=== PATIENT | female | born 1940 | race African-American/Black ===

== ENCOUNTER 2024-06-29 16:08 | Inpatient (IN) | payer OTHER ==
[2024-06-29 17:41] LABS: BASO % 0.5 % (0-2.0); HEMATOCRIT 39.3 % (32.4-45.2); HEMOGLOBIN 12.2 GM/dL (10.7-15.3); LYMPH % 7.9 % (8-40); MCH 21.2 pg (25.7-33.7); MCHC 30.9 g/dl (32.0-36.0); MEAN CELL VOLUME 68.5 fl (80-96); MEAN PLT VOLUME 8.5 fl (7.5-11.1); MONO % 9.5 % (3.8-10.2); NEUT % 80.1 % (42.8-82.8); PLATELET COUNT 230 10^3/uL (134-434); RBC 5.75 M/mm3 (3.60-5.2); WHITE BLOOD COUNT 9.3 K/mm3 (4.0-10.0)
[2024-06-29 17:48] LABS: INR 1.43 (0.83-1.09)
[2024-06-29 17:51] LABS: ACTIVATED PTT 29.3 SECONDS (25.2-36.5)
[2024-06-29 17:57] LABS: POTASSIUM 4.5 mmol/L (3.5-5.1)
[2024-06-29 17:59] LABS: CALCIUM 9.8 mg/dL (8.5-10.1)
[2024-06-29 18:00] LABS: ALBUMIN 3.6 g/dl (3.4-5.0); BLOOD UREA NITROGEN 17.2 mg/dL (7-18)
[2024-06-29 18:03] LABS: CREATININE 0.9 mg/dL (0.55-1.3)
[2024-06-29 18:05] LABS: BILIRUBIN,TOTAL 0.6 mg/dL (0.2-1); TOT PROT 7.3 g/dl (6.4-8.2)
[2024-06-29 18:18] LABS: ANISOCYTOSIS 2+; MACROCYTOSIS 0; OVALOCYTE 1+; TARGET CELLS 1+; TEAR DROP CELLS 1+
[2024-06-29] MEDS: SODIUM CHLORIDE 0.9% 500 ML INFUS.BAG IV ONE (18:48)
[2024-06-29 20:50] LABS: EPI CELLS 3 /uL (0-25.1); HYALINE CASTS 0 /uL (0-3.1); URINE APPEARANCE CLEAR; URINE BACTERIA 1814 /uL (0-1359); URINE BILIRUBIN NEGATIVE (NEGATIVE); URINE COLOR YELLOW; URINE GLUCOSE (UA) TRACE (NEGATIVE); URINE KETONE NEGATIVE (NEGATIVE); URINE LEUK ESTERASE NEGATIVE (NEGATIVE); URINE NITRITE NEGATIVE (NEGATIVE); URINE PROTEIN 2+ (NEGATIVE); URINE RBC 9 /uL (0-23.9); URINE WBC 3 /uL (0-25.8)
[2024-06-29] MEDS: CEFTRIAXONE 1 GM in DEXTROSE 5%-WATER - 100 ML IVPB ONE (21:21)
[2024-06-29] MEDS ORDERED: CEFTRIAXONE 1 G/50 ML PREMIX 50 ML IVPB ONE (21:23)
[2024-06-30] MEDS: INSULIN ASPART SLIDING SCALE (NOVOLOG) 1 VIAL SQ SCH (06:16)
[2024-06-30] MEDS: SODIUM CHLORIDE 1,000 ML IV SCH (06:16)
[2024-06-30] MEDS: INSULIN (NOVOLOG) ASPART 100 UNITS/ML 10ML VIAL SQ ONE (06:16)
[2024-06-30 08:33] LABS: BASO % 0.4 % (0-2.0); EOS % 2.1 % (0-4.5); HEMATOCRIT 41.3 % (32.4-45.2); HEMOGLOBIN 12.6 GM/dL (10.7-15.3); LYMPH % 12.8 % (8-40); MCH 21.2 pg (25.7-33.7); MCHC 30.4 g/dl (32.0-36.0); MEAN CELL VOLUME 69.7 fl (80-96); MEAN PLT VOLUME 8.7 fl (7.5-11.1); MONO % 9.4 % (3.8-10.2); NEUT % 75.3 % (42.8-82.8); PLATELET COUNT 233 10^3/uL (134-434); RBC 5.93 M/mm3 (3.60-5.2); RDW 17.8 % (11.6-15.6); WHITE BLOOD COUNT 9.3 K/mm3 (4.0-10.0)
[2024-06-30 09:17] LABS: CHOLESTEROL 146 mg/dL (50-200)
[2024-06-30 09:18] LABS: LDL CHOLESTEROL (ONLY SJRH) 89 mg/dL (5-100)
[2024-06-30 09:20] LABS: HDL CHOLESTEROL 39 mg/dL (40-60)
[2024-06-30] MEDS: ENOXAPARIN NA (PORCINE) 40 MG/0.4 ML DISP.SYRIN SQ SCH (09:21)
[2024-06-30] MEDS: MEMANTINE HCL 5 MG TABLET (UD) PO SCH (09:21)
[2024-06-30] MEDS: INSULIN (LEVEMIR) 100 UNITS/ML UNITS SQ SCH (09:21)
[2024-06-30] MEDS: ASPIRIN COATED 81 MG TABLET.EC PO SCH (09:21)
[2024-06-30] MEDS ORDERED: NETARSUDIL MESYLATE (RHOPRESSA) (NON-FORMULARY) 0.02% 2.5 ML BOTTLE OU SCH (10:00)
[2024-06-30 11:56] LABS: EPI CELLS 10 /uL (0-25.1); HYALINE CASTS 0 /uL (0-3.1); PH,URINE 5.5 (5.0-8.0); URINE APPEARANCE CLOUDY; URINE BACTERIA >9,000 /uL (0-1359); URINE BILIRUBIN NEGATIVE (NEGATIVE); URINE COLOR YELLOW; URINE GLUCOSE (UA) NEGATIVE (NEGATIVE); URINE KETONE TRACE (NEGATIVE); URINE LEUK ESTERASE NEGATIVE (NEGATIVE); URINE NITRITE NEGATIVE (NEGATIVE); URINE PROTEIN 2+ (NEGATIVE); URINE RBC 7 /uL (0-23.9); URINE UROBILINOGEN 0.2 mg/dL (0.2-1.0); URINE WBC 22 /uL (0-25.8)
[2024-06-30 13:20] LABS: POTASSIUM 3.7 mmol/L (3.5-5.1)
[2024-06-30 13:22] LABS: ALBUMIN 3.1 g/dl (3.4-5.0); BLOOD UREA NITROGEN 15.6 mg/dL (7-18); CALCIUM 9.3 mg/dL (8.5-10.1); MAGNESIUM 1.7 mg/dL (1.8-2.4)
[2024-06-30 13:25] LABS: CREATININE 0.8 mg/dL (0.55-1.3); PHOSPHOROUS 2.4 mg/dL (2.5-4.9)
[2024-06-30 13:27] LABS: BILIRUBIN,TOTAL 0.6 mg/dL (0.2-1); TOT PROT 6.4 g/dl (6.4-8.2)
[2024-06-30] MEDS: MAGNESIUM 1GM/D5W 100ML - 100 ML IVPB IVPB ONE (14:22)
[2024-06-30] MEDS: LATANOPROST 0.005% OPHTH SOLN 2.5ML BOTTLE OU SCH (21:50)
[2024-07-01 08:32] LABS: BASO % 0.9 % (0-2.0); EOS % 2.2 % (0-4.5); HEMATOCRIT 41.4 % (32.4-45.2); HEMOGLOBIN 12.5 GM/dL (10.7-15.3); LYMPH % 19.3 % (8-40); MCH 21.1 pg (25.7-33.7); MCHC 30.3 g/dl (32.0-36.0); MEAN CELL VOLUME 69.7 fl (80-96); MEAN PLT VOLUME 8.4 fl (7.5-11.1); MONO % 10.3 % (3.8-10.2); NEUT % 67.3 % (42.8-82.8); PLATELET COUNT 236 10^3/uL (134-434); RBC 5.94 M/mm3 (3.60-5.2); RDW 18.2 % (11.6-15.6); WHITE BLOOD COUNT 9.2 K/mm3 (4.0-10.0)
[2024-07-01 08:53] LABS: POTASSIUM 4.2 mmol/L (3.5-5.1)
[2024-07-01 08:55] LABS: CALCIUM 9.2 mg/dL (8.5-10.1)
[2024-07-01 08:56] LABS: ALBUMIN 3.3 g/dl (3.4-5.0)
[2024-07-01 08:58] LABS: BLOOD UREA NITROGEN 17.3 mg/dL (7-18); MAGNESIUM 1.9 mg/dL (1.8-2.4)
[2024-07-01 08:59] LABS: CREATININE 0.8 mg/dL (0.55-1.3)
[2024-07-01 09:00] LABS: BILIRUBIN,TOTAL 0.7 mg/dL (0.2-1); TOT PROT 6.9 g/dl (6.4-8.2)
[2024-07-01] MEDS: LOSARTAN POTASSIUM 25 MG TABLET PO SCH (12:33)
[2024-07-01] MEDS: MEROPENEM-0.9% SODIUM CHLORIDE 1 GM/50 ML BAG IVPB SCH (15:05)
[2024-07-01 15:51] VITALS: BMI 27.8
[2024-07-01] MEDS: ATORVASTATIN CA 10 MG TABLET (FP) PO SCH (22:08)
[2024-07-02 08:54] LABS: BASO % 0.4 % (0-2.0); EOS % 1.6 % (0-4.5); HEMATOCRIT 37.7 % (32.4-45.2); HEMOGLOBIN 11.5 GM/dL (10.7-15.3); LYMPH % 16.5 % (8-40); MCHC 30.5 g/dl (32.0-36.0); MEAN CELL VOLUME 68.8 fl (80-96); MEAN PLT VOLUME 8.4 fl (7.5-11.1); MONO % 10.4 % (3.8-10.2); NEUT % 71.1 % (42.8-82.8); PLATELET COUNT 235 10^3/uL (134-434); RBC 5.48 M/mm3 (3.60-5.2); WHITE BLOOD COUNT 9.4 K/mm3 (4.0-10.0)
[2024-07-02 09:16] LABS: POTASSIUM 4.4 mmol/L (3.5-5.1)
[2024-07-02 09:23] LABS: ALBUMIN 3.3 g/dl (3.4-5.0); BLOOD UREA NITROGEN 18.9 mg/dL (7-18); CALCIUM 9.6 mg/dL (8.5-10.1)
[2024-07-02 09:26] LABS: CREATININE 0.8 mg/dL (0.55-1.3)
[2024-07-02 09:28] LABS: BILIRUBIN,TOTAL 0.6 mg/dL (0.2-1); TOT PROT 6.8 g/dl (6.4-8.2)
[2024-07-02] MEDS: CARVEDILOL 3.125 MG TABLET (FP) PO SCH (13:59)
[2024-07-03 09:50] LABS: BASO % 0.7 % (0-2.0); EOS % 1.7 % (0-4.5); HEMATOCRIT 38.9 % (32.4-45.2); LYMPH % 17.8 % (8-40); MCH 21.2 pg (25.7-33.7); MCHC 30.8 g/dl (32.0-36.0); MEAN PLT VOLUME 8.6 fl (7.5-11.1); MONO % 9.1 % (3.8-10.2); NEUT % 70.7 % (42.8-82.8); PLATELET COUNT 252 10^3/uL (134-434); RBC 5.63 M/mm3 (3.60-5.2); RDW 17.8 % (11.6-15.6); WHITE BLOOD COUNT 9.8 K/mm3 (4.0-10.0)
[2024-07-03 10:00] LABS: POTASSIUM 4.7 mmol/L (3.5-5.1)
[2024-07-03 10:15] LABS: ALBUMIN 3.2 g/dl (3.4-5.0); BLOOD UREA NITROGEN 19.2 mg/dL (7-18); CALCIUM 9.6 mg/dL (8.5-10.1)
[2024-07-03 10:18] LABS: CREATININE 0.7 mg/dL (0.55-1.3)
[2024-07-03 10:19] LABS: BILIRUBIN,TOTAL 0.9 mg/dL (0.2-1); TOT PROT 6.5 g/dl (6.4-8.2)
[2024-07-03 10:49] LABS: ANISOCYTOSIS 1+; MACROCYTOSIS 0; OVALOCYTE 1+; TARGET CELLS 1+
[2024-07-03] MEDS: SACUBITRIL/VALSARTAN 24 MG-26 MG TABLET PO SCH (14:43)
[2024-07-03] MEDS: EMPAGLIFLOZIN (JARDIANCE) 10 MG TABLET PO SCH (15:21)
[2024-07-04 03:23] VITALS: RESP 18
[2024-07-04 08:42] LABS: BASO % 0.8 % (0-2.0); EOS % 3.2 % (0-4.5); HEMATOCRIT 40.4 % (32.4-45.2); HEMOGLOBIN 12.7 GM/dL (10.7-15.3); LYMPH % 15.1 % (8-40); MCH 21.4 pg (25.7-33.7); MCHC 31.4 g/dl (32.0-36.0); MEAN CELL VOLUME 68.1 fl (80-96); MEAN PLT VOLUME 8.4 fl (7.5-11.1); NEUT % 70.9 % (42.8-82.8); PLATELET COUNT 267 10^3/uL (134-434); RBC 5.94 M/mm3 (3.60-5.2); RDW 17.9 % (11.6-15.6); WHITE BLOOD COUNT 9.3 K/mm3 (4.0-10.0)
[2024-07-04 09:07] LABS: POTASSIUM 4.7 mmol/L (3.5-5.1)
[2024-07-04 09:14] LABS: ALBUMIN 2.9 g/dl (3.4-5.0); BLOOD UREA NITROGEN 18.9 mg/dL (7-18); CALCIUM 9.1 mg/dL (8.5-10.1); MAGNESIUM 1.9 mg/dL (1.8-2.4)
[2024-07-04 09:17] LABS: CREATININE 0.7 mg/dL (0.55-1.3)
[2024-07-04 09:18] LABS: BILIRUBIN,TOTAL 0.7 mg/dL (0.2-1); TOT PROT 6.2 g/dl (6.4-8.2)
[2024-07-04 22:12] VITALS: BP 114/69; PULSE 61; TEMP 97.4
== END 2024-07-04 23:00 | DRG 690 ==
LOC: JER 16:08 → JERBED 20:50 → J7W 06-30 00:58 → OBSVTOIN 06-30 11:35 → J7W 07-01 13:27
PROVIDERS: ADMIT Internal Medicine; ATTEND Registered Nurse
DX: N39.0 Urinary tract infection, site not specified (principal); F01.B2 Vascular dementia, moderate, with psychotic disturbance; N17.9 Acute kidney failure, unspecified; I35.0 Nonrheumatic aortic (valve) stenosis; E11.65 Type 2 diabetes mellitus with hyperglycemia; I12.9 Hypertensive chronic kidney disease with stage 1 through stage 4 chronic kidney disease, or unspecified chronic kidney disease; E11.22 Type 2 diabetes mellitus with diabetic chronic kidney disease; N18.9 Chronic kidney disease, unspecified; H40.9 Unspecified glaucoma; R44.1 Visual hallucinations; E86.0 Dehydration; E78.5 Hyperlipidemia, unspecified; B96.20 Unspecified Escherichia coli [E. coli] as the cause of diseases classified elsewhere; Z89.431 Acquired absence of right foot; Z89.512 Acquired absence of left leg below knee
CPT/HCPCS: 0241U-QW; 36415; 70450-TC; 71045-TC-FY; 80053; 80061; 81003; 82306; 82962; 83036; 83735; 84100; 84443; 84484; 85025; 85610; 85730; 87086; 87186; 93005; 93010; 93306-TC; 97161-GP; 99285-25; G0378